=== PATIENT | female | born 1990 | race American Indian/Alaskan Native ===

== ENCOUNTER 2018-09-19 19:56 | Emergency (ER) | payer MEDICAID, OTHER ==
[2018-09-19 20:36] LABS: Basophils # (Auto) 0.1 K/mm3 (0.0-0.1); Basophils % (Auto) 0.6 % (0.0-1.8); Eosinophils # (Auto) 0.2 K/mm3 (0.0-0.4); Eosinophils % (Auto) 2.1 % (0.0-4.3); Hematocrit 43.8 % (30.3-42.9); Hemoglobin 14.1 gm/dl (10.1-14.3); Lymphocytes # (Auto) 3.2 K/mm3 (1.2-5.4); Lymphocytes % (Auto) 35.7 % (13.4-35.0); Mean Corpuscular HGB Conc 32 % (30-34); Mean Corpuscular Volume 83 fl (79-97); Monocytes % (Auto) 11.2 % (0.0-7.3); Platelet Count 173 K/mm3 (140-440); Red Blood Count 5.27 M/mm3 (3.65-5.03); Red Cell Distribution Width 13.7 % (13.2-15.2)
[2018-09-19 20:49] LABS: BUN/Creatinine Ratio 14; Blood Urea Nitrogen 11 mg/dL (7-17); Calcium 9.1 mg/dL (8.4-10.2); Hemolysis Index 10
[2018-09-19 21:22] LABS: Bacteria,Urine 1+ /HPF (Negative); Bilirubin,Urine NEG (Negative); Blood,Urine NEG (Negative); Color,Urine Yellow (Yellow); Mucus,Urine 3+ /HPF
--- NOTE | 2018-09-19 21:35 | Emergency Department Report ---
Vomiting/Diarrhea - HPI Chief Complaint: Nausea/Vomiting/Diarrhea Stated Complaint: VOMITING Time Seen by Provider: 09/19/18 21:34 Duration: 2 Days Severity: severe Nausea/Vomiting Severity: Moderate Diarrhea Severity: Mild Pain Location: Generalized Pain Severity: Severe (8/10) Symptoms: Yes Watery Diarrhea, No Bloody diarrhea, No Fever, No Able to Tolerate Fluids, No Recent Unusual Foods, No Recent Untreated Water, No Recent use of Antibiotics, No Family w/ Similar Symptoms, No Contacts w/ Similar Symptoms, No Rash, No Hematuria, No Recent URI Symptoms (patient smokes marijuana frequently) ED Review of Systems ROS: Stated complaint: VOMITING Other details as noted in HPI Constitutional: malaise. denies: chills, fever Eyes: denies: eye pain, vision change ENT: denies: throat pain, epistaxis, congestion Respiratory: denies: cough, shortness of breath, wheezing Cardiovascular: denies: chest pain, palpitations, edema, syncope Gastrointestinal: abdominal pain, nausea, vomiting, diarrhea. denies: constipation, hematemesis, melena, hematochezia Genitourinary: denies: urgency, dysuria, frequency, hematuria, discharge, abnormal menses, dyspareunia Skin: denies: rash Neurological: denies: headache, weakness, numbness, paresthesias, abnormal gait, vertigo ED Past Medical Hx - Past Medical History Previous Medical History?: Yes Hx Hypertension: No Hx Congestive Heart Failure: No Hx Diabetes: No Hx Deep Vein Thrombosis: No Hx Renal Disease: No Hx Sickle Cell Disease: No Hx Seizures: No Hx Asthma: Yes (today had an attack per ems) Hx COPD: No Hx HIV: No - Surgical History Past Surgical History?: No - Family History Family history: hypertension - Social History Smoking Status: Never Smoker Substance Use Type: Marijuana - Medications Home Medications: Home Medications Medication Instructions Recorded Confirmed Last Taken Type Ferrous Sulfate [Feosol 325 MG tab] 325 mg PO BID #60 tablet 08/30/15 Unknown Rx Ibuprofen [Motrin 600 MG tab] 600 mg PO Q6HR PRN #30 tablet 08/30/15 Unknown Rx Dicyclomine [Bentyl] 40 mg PO QID 3 Days #12 tablet 09/20/18 Unknown Rx Ondansetron [Zofran ODT TAB] 8 mg PO Q8HR PRN #12 tab.rapdis 09/20/18 Unknown Rx Ranitidine HCl [Zantac 150 MG TAB] 150 mg PO Q12H 30 Days #60 tablet 09/20/18 Unknown Rx Vomiting Diarrhea Exam - Exam General: Vital signs noted. No distress. Alert and acting appropriately. This is a 28-year-old female appears to be in mild distress from abdominal pain and nausea vomiting and diarrhea. HEENT: No Pharyngeal Erythema, No Pharyngeal Exudates, No Moist Mucous Membranes (dry), No Rhinorrhea, No Conjuctival Injection, No Frontal Tenderness, No Maxillary Tenderness Neck: No Adenopathy (supple, full range of motion and no C-spine tenderness), No Rigidity Lungs: Yes Clear Lung Sounds (clear to auscultation bilaterally without any rhonchi wheezes or rales), Yes Good Air Exchange, No Wheezes, No Stridor, No Cough, No Nasal Flaring, No Retractions, No Use of Accessory Muscles Heart exam: Regular: Yes (bradycardic at 57 bpm which is normal for patient), Murmur: No, Tachycardia: No Abdomen: Tenderness: Yes (mild tenderness in all quadrants. No rebound or guarding), Peritoneal Signs: No, Distention: No, Hyperactive Bowel sounds: No (normal bowel sounds in all quadrants) Skin exam: Rash: No, Edema: No, Normal turgor: Yes (clean, dry and intact, no rash no lesions) Neurologic: Alert and oriented 3, no deficits. Musculoskeletal: Unremarkable. Normal exam ED Course Vital Signs 09/19/18 20:09 Temperature 98.5 F Pulse Rate 57 L Respiratory 18 Rate Blood Pressure 120/65 O2 Sat by Pulse 100 Oximetry - Reevaluation(s) Reevaluation #1: 09/19/18 21:55 Patient to receive IV fluid normal saline 1 L, Bentyl 40 mg by mouth, lidocaine 15 mL, Maalox 30 mL by mouth, morphine 4 mg IV and Zofran 8 mg IV and I will reassess her. Reevaluation #2: 09/19/18 22:43 Patient is stable and says that she feels a little better. I will reevaluate. Abdominal minimal tenderness in all quadrants. Reevaluation #3: 09/20/18 00:01 Patient reports that she is feeling a lot better and she is ready to go. Den ies any abdominal pain, nausea vomiting or diarrhea. ED Medical Decision Making - Lab Data Result diagrams: 09/19/18 20:21 09/19/18 20:21 Lab Results 09/19/18 09/19/18 09/19/18 Range/Units 20:21 20:21 20:21 WBC 8.9 (4.5-11.0) K/mm3 RBC 5.27 H (3.65-5.03) M/mm3 Hgb 14.1 (10.1-14.3) gm/dl Hct 43.8 H (30.3-42.9) % MCV 83 (79-97) fl MCH 27 L (28-32) pg MCHC 32 (30-34) % RDW 13.7 (13.2-15.2) % Plt Count 173 (140-440) K/mm3 Lymph % (Auto) 35.7 H (13.4-35.0) % [place] % (Auto) 11.2 H (0.0-7.3) % Eos % (Auto) 2.1 (0.0-4.3) % Baso % (Auto) 0.6 (0.0-1.8) % Lymph # 3.2 (1.2-5.4) K/mm3 [place] # 1.0 H (0.0-0.8) K/mm3 Eos # 0.2 (0.0-0.4) K/mm3 Baso # 0.1 (0.0-0.1) K/mm3 Seg Neutrophils % 50.4 (40.0-70.0) % Seg Neutrophils # 4.5 (1.8-7.7) K/mm3 Sodium 139 (137-145) mmol/L Potassium 4.1 (3.6-5.0) mmol/L Chloride 104.9 (98-107) mmol/L Carbon Dioxide 25 (22-30) mmol/L Anion Gap 13 mmol/L BUN 11 (7-17) mg/dL Creatinine 0.8 (0.7-1.2) mg/dL Estimated GFR > 60 ml/min BUN/Creatinine Ratio 14 % Glucose 85 (65-100) mg/dL POC Glucose (70-105) Calcium 9.1 (8.4-10.2) mg/dL HCG, Qual Negative (Negative) Urine Color (Yellow) Urine Turbidity (Clear) Urine pH (5.0-7.0) Ur Specific [place] (1.003-1.030) Urine Protein (Negative) mg/dL Urine Glucose (UA) (Negative) mg/dL Urine Ketones (Negative) mg/dL Urine Blood (Negative) Urine Nitrite (Negative) Urine Bilirubin (Negative) Urine Urobilinogen (<2.0) mg/dL Ur Leukocyte Esterase (Negative) Urine WBC (Auto) (0.0-6.0) /HPF Urine RBC (Auto) (0.0-6.0) /HPF U Epithel Cells (Auto) (0-13.0) /HPF Urine Bacteria (Auto) (Negative) /HPF Urine Mucus /HPF 09/19/18 09/19/18 Range/Units 20:23 20:50 WBC (4.5-11.0) K/mm3 RBC (3.65-5.03) M/mm3 Hgb (10.1-14.3) gm/dl Hct (30.3-42.9) % MCV (79-97) fl MCH (28-32) pg MCHC (30-34) % RDW (13.2-15.2) % Plt Count (140-440) K/mm3 Lymph % (Auto) (13.4-35.0) % [place] % (Auto) (0.0-7.3) % Eos % (Auto) (0.0-4.3) % Baso % (Auto) (0.0-1.8) % Lymph # (1.2-5.4) K/mm3 [place] # (0.0-0.8) K/mm3 Eos # (0.0-0.4) K/mm3 Baso # (0.0-0.1) K/mm3 Seg Neutrophils % (40.0-70.0) % Seg Neutrophils # (1.8-7.7) K/mm3 Sodium (137-145) mmol/L Potassium (3.6-5.0) mmol/L Chloride (98-107) mmol/L Carbon Dioxide (22-30) mmol/L Anion Gap mmol/L BUN (7-17) mg/dL Creatinine (0.7-1.2) mg/dL Estimated GFR ml/min BUN/Creatinine Ratio % Glucose (65-100) mg/dL POC Glucose 72 (70-105) Calcium (8.4-10.2) mg/dL HCG, Qual (Negative) Urine Color Yellow (Yellow) Urine Turbidity Clear (Clear) Urine pH 6.0 (5.0-7.0) Ur Specific [place] 1.032 H (1.003-1.030) Urine Protein 30 mg/dl (Negative) mg/dL Urine Glucose (UA) Neg (Negative) mg/dL Urine Ketones 20 (Negative) mg/dL Urine Blood Neg (Negative) Urine Nitrite Neg (Negative) Urine Bilirubin Neg (Negative) Urine Urobilinogen 4.0 (<2.0) mg/dL Ur Leukocyte Esterase Neg (Negative) Urine WBC (Auto) 2.0 (0.0-6.0) /HPF Urine RBC (Auto) 1.0 (0.0-6.0) /HPF U Epithel Cells (Auto) 2.0 (0-13.0) /HPF Urine Bacteria (Auto) 1+ (Negative) /HPF Urine Mucus 3+ /HPF Urine culture sent - Medical Decision Making This is a 28-year-old patient here with nausea vomiting and diarrhea with abdominal cramping just started 2 days ago. Patient is a known cannabis user and said last time she used was a couple days ago. She denies any blood in her urine. Patient physical exam with minimal tenderness that is generalized abdominal quadrant. Her mucous membrane is dry. CBC stable except for mild hemoconcentration, urinalysis with increase in specific gravity and 20 ketones, 1+ bacteria and patient without urinary symptoms. Cultures were sent. She received 1 L of normal saline, Maalox 30 mL and lidocaine 15 mL by mouth, Bentyl 40 mg by mouth, morphine 4 mg IV and Zofran 8 mg IV emergency room. Patient says she is feeling a lot better and she is able to tolerate ice water without any nausea vomiting or diarrhea. Abdominal pain has subsided. Patient discharged home in stable condition with her significant other with prescription for Bentyl, Zofran and and Zantac. She was instructed to return to the emergency room if her symptoms return, to stop using cannabis and follow-up with her primary care physician in 3 days. Patient was understanding - Differential Diagnosis gastroenteritis, UTI, ectopic , CIH, Critical care attestation.: If time is entered above; I have spent that time in minutes in the direct care of this critically ill patient, excluding procedure time. ED Disposition Clinical Impression: Nausea vomiting and diarrhea, Abdominal cramping, Dehydration, mild Disposition: [id number] TO HOME OR SELFCARE Is pt being admited?: No Does the pt Need Aspirin: No Condition: Stable Instructions: Acute Nausea and Vomiting (ED), Abdominal Pain (ED), Acute Diarrhea (ED), Nutrition Tips for Relief of Diarrhea (ED), Dehydration (ED) Additional Instructions: Increase fluid intake to 2-3 liter of water daily follow discharge instruction on diarrhea tips Follow diet such banana, rice, apple sauce and toast over the next 72 hours. Follow up with PCP in 3 days or if symptoms worsens return to ED refrain from acidic, carbonated and spicy foods Referrals: [facility] [Outside] - 09/22/18 Forms: Work/School Release Form(ED)
[2018-09-19] MEDS ORDERED: ZOFRAN IV ONE (21:53)
[2018-09-19] MEDS ORDERED: MORPHINE IV ONE (21:53)
[2018-09-19] MEDS ORDERED: BENTYL PO ONE (21:53)
[2018-09-19] MEDS ORDERED: BENADRYL IV ONE (21:53)
[2018-09-19] MEDS ORDERED: LIDOCAINE VISCOUS 2% PO ONE (21:54)
[2018-09-19] MEDS ORDERED: ALUM-MAG HYDROX-SIMETH 200-200-20MG/5ML PO ONE (21:54)
[2018-09-21 12:51] VITALS: BP 120/65
== END 2018-09-20 00:29 | disposition home or self-care (01) ==
LOC: ED 19:56
DX: E86.0 Dehydration (principal); R10.84 Generalized abdominal pain; F12.10 Cannabis abuse, uncomplicated; J45.909 Unspecified asthma, uncomplicated
CPT/HCPCS: 36415; 80048; 81001; 82962; 84703; 85025; 87086; 96374; 96375; 99283; J1200; J2270; J2405